=== PATIENT | male | born 1940 | race Caucasian/White ===

== ENCOUNTER → 2017-02-16 | Outpatient (CLI) | payer BC | LOC: FCPNEURO 21:30 | PROVIDERS: ATTEND Psychiatry & Neurology Sleep Medicine | DX: G47.39 Other sleep apnea (principal); G47.37 Central sleep apnea in conditions classified elsewhere ==

== ENCOUNTER → 2017-03-20 | Outpatient (CLI) | payer BC | LOC: FCPNEURO 20:00 | PROVIDERS: ATTEND Psychiatry & Neurology Sleep Medicine | DX: G47.39 Other sleep apnea (principal); G47.37 Central sleep apnea in conditions classified elsewhere ==

== ENCOUNTER → 2017-07-26 | Outpatient (CLI) | payer BC | LOC: FIMAGING 12:03 | PROVIDERS: ATTEND Internal Medicine Endocrinology, Diabetes & Metabolism | DX: Z13.820 Encounter for screening for osteoporosis (principal); M85.89 Other specified disorders of bone density and structure, multiple sites; E21.5 Disorder of parathyroid gland, unspecified ==

== ENCOUNTER 2018-04-09 09:42 | Inpatient (IN) | payer OTHER, BC ==
--- NOTE | 2018-04-09 10:03 | EDPHY ---
H & P Stated Complaint: mechanical fall 3 days ago R knee and R great toe pain Time Seen by Provider: 04/09/18 09:52 HPI/ROS: CHIEF COMPLAINT: Right knee and right great toe pain post mechanical fall HISTORY OF PRESENT ILLNESS: 77-year-old male via private vehicle complaining of acute right knee and right great toe pain. States that 3 days ago he was walking in his garden, sustained a mechanical fall, tripped and fell onto his right knee also stubbed his right great toe. This was a mechanical non syncopal episode. He has been complaining of pain ever since. He has been ambulating with a walker. He has been unable to go upstairs has been sleeping in a chair down stairs. He is here with his . States that he may have brushed his head against the garden edging however no loss of consciousness and no anticoagulant use. No midline C-spine pain. No alcohol or drug use at time of incident. PRIMARY CARE PROVIDER: Dr. Clara Powell REVIEW OF SYSTEMS: 10 systems reviewed and negative with the exception of the elements mentioned in the history of present illness PAST MEDICAL/SURGICAL HISTORY: Right knee arthroplasty 10 years ago at [facility] by Dr. Christian Collazo,no anticoagulant use, SOCIAL HISTORY: denies alcohol use at time of incident PHYSICAL EXAM 1) GENERAL: Well-developed, well-nourished, alert and oriented. Answering questions appropriately. 2) HEAD: Normocephalic, atraumatic 3) HEENT: Pupils equal, round, reactive to light bilaterally. Negative Horners. Nasopharynx, oropharynx, clear. No deformity or angulation of nose. No septal hematoma. No rhinorrhea. No oral trauma. Ears bilaterally with normal tympanic membranes. No hemotympanum. No fluid or blood in the external auditory canal. No raccoon eyes. No Santiago sign. Teeth are normally aligned with no gross malocclusion, TMJ bilaterally nontender, facial bones nontender including the zygomatic arch, maxilla mandible. 4) NECK: No cervical collar is on. Posterior cervical spine is nontender, no stepoff, no effusion. Full range of motion which does not elicit any midline cervical spine pain, no posterior midline tenderness, no step-off. 5) LUNGS: Clear to auscultation bilaterally, no wheezes, no rhonchi, no retractions. No obvious signs of trauma. No chest wall pain. No flaring, no grunting. Moving symmetrically. No crepitus. 6) HEART: [Regular rate and rhythm, 7) ABDOMEN: No guarding, no rebound, no focal tenderness, no peritoneal signs, no signs of trauma, no ecchymosis 8) MUSCULOSKELETAL: Right lower extremity: Anterior knee surgical scar noted, tender to palpation, no overlying skin changes no abrasion laceration, reproducible pain with range of motion. Proximally distally nontender. Hip nontender. Acetabulum nontender. Soft compartments throughout. DP PT pulses present and brisk. Tender to palpation right great toe with ecchymosis noted. No subungual hematoma. No deformity no angulation. Otherwise, Moving all extremities, no focal areas of tenderness, no obvious trauma. 9) BACK: No midline vertebral tenderness, no fluctuance, no step-off, no obvious trauma, no visual or palpable abnormality. 10) SKIN: No laceration. No abrasion DIFFERENTIAL DIAGNOSIS: In no particular order including but not limited to fracture, sprain, strain, periprosthetic fracture - Medical/Surgical History Hx Asthma: No Hx Chronic Respiratory Disease: No Hx Diabetes: No Hx Cardiac Disease: No Hx Renal Disease: No Hx Cirrhosis: No Hx Alcoholism: No Hx HIV/AIDS: No Hx Splenectomy or Spleen Trauma: No Other PMH: osteoarthritis. bila knee replacements. gi bleed 1999. sleep apnea - Social History Smoking Status: Never smoked Constitutional: Initial Vital Signs Temperature (C) 36.6 C 04/09/18 09:48 Heart Rate 65 04/09/18 09:48 Respiratory Rate 16 04/09/18 09:48 Blood Pressure 157/82 H 04/09/18 09:48 O2 Sat (%) 95 04/09/18 09:48 O2 Delivery Mode Room Air Allergies/Adverse Reactions: No Known Allergies Allergy (Unverified 04/09/18 09:47) Home Medications: Medication Instructions Recorded Finasteride 04/09/18 Lovaza 1 gm (*) 04/09/18 Myrbetriq 04/09/18 Valsartan 04/09/18 Medical Decision Making - Diagnostics Imaging Results: Imaging Impressions Foot X-Ray 04/09/18 10:02 Impression: 1. Acute nondisplaced fracture involving the great toe proximal phalanx. 2. Multicentric degenerative features and bone demineralization. Knee X-Ray 04/09/18 10:02 Impression: 1. Acute distal medial femoral epicondylar fracture. 2. Status post prior remote knee arthroplasty. Images reviewed myself Procedures: Procedure: Splint A right postop shoe splint was applied by ER lens coating technician. After application of the splint I returned and re-examined the patient. The splint was adequately immobilizing the joint and distal to the splint the patient's circulation and sensation were intact. Patient shows no signs of compartment syndrome. Was given orthopedic precautions. ED Course/Re-evaluation: I saw this patient independently based on established practice protocols. Care of patient under supervision of secondary supervising physician Dr Fuentes with whom I discussed case. 10:40 a.m. Patient was re-evaluated at this time. I discussed and reviewed the imaging studies with him and his . The case packer and sealer has consulted as well. Of concerned this patient is disability care for himself. He has a few stairs that he is been unable to climb at home and his expresses concern about her ability to lift him up and care for him. We discussed hospital admission which he is agreeable with noting that he does not feel safe being discharged home. I consulted with hospitalist, Bernie Palafox and will admit to Dr. Wei. Will consult Orthopedics Dr. Markie Hunter. 10:50 a.m.: Consultation with Dr. Hunter who will consult, recommends postop shoe and hinged knee brace. hinged knee brace not available in the ER. Patient will be placed into a postop shoe Departure - Departure Disposition: [facility] Acute Clinical Impression: Right femoral fracture Qualifiers: Encounter type: initial encounter Femur location: medial condyle Fracture type : closed Fracture alignment: displaced Qualified Code(s): S72.431A - Displaced fracture of medial condyle of right femur, initial encounter for closed fracture Fracture of right great toe Qualifiers: Encounter type: initial encounter Fracture type: closed Phalanx: proximal Fracture alignment: nondisplaced Qualified Code(s): S92.414A - Nondisplaced fracture of proximal phalanx of right great toe, initial encounter for closed fracture Condition: Fair Referrals: Mo Powell, DO [Primary Care Provider] - As per Instructions
[2018-04-09 11:09] LABS: PLATELET COUNT 267 10^3/uL (150-400)
[2018-04-09] MEDS ORDERED: ONDANSETRON 4 MG/2 ML VIAL IVP PRN (11:16)
[2018-04-09] MEDS ORDERED: ACETAMINOPHEN 325 MG TAB PO PRN (11:16)
--- NOTE | 2018-04-09 11:31 | PDGENHP ---
History and Physical History and Physical: CC: Difficulty ambulating after recent right leg and foot injuries HISTORY: This patient comes into the ER complaining of difficulty ambulating with 3 days of right leg and foot pain after an injury. He apparently fell while working in his garden landing on his right knee and stubbing his right toe and has had pain in both of those places since then. At home he has been unable to get up and down stairs and has used a walker to get around since this injury. However ambulation has become increasingly difficult with increasing difficulty pain. Notably he does have a previous total knee arthroplasty on the right. In terms of the fall itself he tripped so this was a mechanical fall without any neurologic or cardiac type symptoms at the time. 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 I have reviewed the list and ordered appropriate medicines. PHYSICAL EXAMINATION: Vital Signs: Mild hypertension in the ER currently resolved, otherwise normal without fever Examination: General: alert, oriented, good mentation, relaxed Skin: warm, dry, good color, no rash HEENT: normal Neck: no mass or jvd Resps: relaxed Lungs: clear breath sounds Heart: regular, no murmur Abdomen: soft, nondistended, nontender, +BS, no mass Upper Extremities: normal Lower Extremities: Some pain and tenderness at medial aspect of knee and fairly painful right 1st toe with any movement but no signs of infection or inflammation at those areas, no edema of the legs No Bleeding or bruising Neurologic: normal speech/language, 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, no focal weakness IV site: looks normal LABORATORY DATA: Mildly elevated white blood cell count otherwise normal CBC Unremarkable metabolic panel RADIOLOGY STUDIES: I reviewed images from x-rays of the right knee which shows a mildly displaced fracture the medial epicondyle, with arthroplasty components in the tibia and femur both appearing well seated I reviewed images of x-rays of the right foot showing a nondisplaced transverse fracture midshaft proximal phalanx of the right 1st toe, also significant degenerative changes at right 1st MTP joint ASSESSMENT: * medial epicondylar fracture of right knee and fracture of proximal phalanx right 1st toe, both after a mechanical fall 3 days ago * impaired mobility and safety due to pain of his fractures * prior total knee arthroplasty on the right, components appear well seated by my review of the x-ray, ortho consult pending * mechanical fall at home due to tripping in the garden * chronic hypertension on medication * hyperparathyroidism treated with parathyroidectomy and normal calcium send PTH since then PLANS: * Fall risk precautions * DVT prophylaxis * Physical occupational therapy * Non operative management of the fractures * Patient has been seen by Dr. Hunter who is placed a knee brace, and given the patient also a shoe boot for use with ambulation * Discharge from the hospital hopefully in 1-2 days if he is able to get up and ambulate well enough, but if necessary may need to stay longer or even go to intermediate facility though I doubt this I have reviewed the patient's case in detail with Arun campoverde of the ER I have reviewed the patient's past medical records as part of this assessment, including outpatient clinic records
--- NOTE | 2018-04-09 13:08 | ASMTCMCOM ---
CM Note CM Note Notes: Pt presented to the ED through triage for right knee and right great toe pain after having a mechanical fall in his garden at home 3 days ago. Pt admitted for displaced fracture of medial condyle of right femur, nondisplaced fracture of right great toe, and impaired mobility/ability to ambulate and care for himself if he were to return home. Pt has right TKA and ortho is going to consult. 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 Pt states he has been sleeping in a recliner in the family room on the main floor. There is one step down into the family room. Dixie states pt has also been using a walker to ambulate and using a urinal. But considering pt's injuries and level of pain, pt would be at very high risk for another fall if he were to return home at this time. Monique states she has been concerned that he will fall onto her and then she would get injured. We discussed the possibility of setting up skilled and non-skilled HC but it being a Wednesday it would be unlikely to be able to arrange enough care to start tonight in order to ensure a safe discharge plan. We discussed that pt would probably benefit from a short term rehab stay. Dixie states they live very close to [facility] (& Dixie volunteers there), so [facility] would be their first choice but they understand that rarely has beds available. We discussed [facility] and Dixie states she has a friend who is there right now and likes it. Non-triggering Level 1 PASSR completed. Exact DC needs TBD but anticipate pt DC to SNF rehab vs home w/HC. PT/OT evals ordered. CM to follow. Date Signed: 04/09/2018 01:07 PM Electronically Signed By:Charla Lopez RN
--- NOTE | 2018-04-09 14:00 | GCON ---
DATE OF CONSULTATION: 04/09/2018 REFERRING PHYSICIAN: Christian Wei MD CHIEF COMPLAINT: Pain, right knee and right foot, with difficulty ambulating. HISTORY OF PRESENT ILLNESS: This is a 77-year-old male who has a past history of right total knee ar throplasty about 10 years ago, came into the ER this morning with difficulty ambulating for the past 3 days. Three days ago, he was walking to the shower and tripped on something and fell striking his knee and likely his foot. Afterward he has been having increasing difficulty getting up and down sta irs. He has been using a walker to get around since the injury with worsening pain and increased dif ficulty ambulating. His brought him in. X-rays were done which showed a fracture of the knee a nd the toe, and I was consulted for further treatment. He is admitted to the Hospital service. REVIEW OF SYSTEMS: A 10-point review of systems is negative except as noted above. PAST SURGICAL HISTORY: Total knee arthroplasty at [facility] 10 years ago. PAST MEDICAL HISTORY: Benign prostatic hypertrophy and hypertension. FAMILY HISTORY: Noncontributory. SOCIAL HISTORY: Lives at home with his . MEDICATIONS: Please review list of medications in Consign[facility]. OBJECTIVE: VITAL SIGNS: His heart rate is 55, is hypertensive at 164/78. GENERAL: Pleasant, alert and oriented, lying in bed. MUSCULOSKELETAL: Right Knee: Minimal swelling of the knee. No effusi on. Well-healed midline scar. Tender to palpation over the medial epicondyle of the femur. Nontend er to palpation laterally along the femur or the tibia. Nontender to palpation medially along the ti jignesh. Extensor mechanism intact. His range of motion is 5 to about 60 degrees. Past 60 degrees is l imited by pain. He is stable to varus and valgus stress with pain medially with gentle valgus stress . Right Toe: There is bruising and swelling of the great toe. He is tender to palpation over the p roximal phalanx. There is bony hypertrophy of the 1st MTP joint. He has pain with passive motion of that toe. IMAGING: X-ray of the right knee was reviewed by me. The x-ray shows a nondisplaced medial epicondy le fracture. The femur prosthesis appears stable without evidence of loosening. The same applies fo r the tibial component. There are 2 screws in the tibial plateau from the prior surgery. These appe ar intact. X-ray of the right toe was reviewed. The patient has severe 1st MTP joint arthritis. Th ere is a nondisplaced transverse fracture through the proximal phalanx. ASSESSMENT AND PLAN: Right knee medial epicondyle fracture in the setting of total knee arthroplasty and right great toe nondisplaced proximal phalanx shaft fracture. I think these are stable fracture s. He may weightbear as tolerated, protected with a walker with a hinged knee brace and a hard-soled postop shoe. If he has difficulty with the hard-soled shoe, we may change this to a boot. However, this may be difficult with a hinged knee brace. The hinged knee brace was applied personally by me. It is set from 0-50 degrees for now, as that appears to be his level of comfort with flexion. He d oes not need a postop shoe while in bed, only when ambulating. He should follow up with me in 2 week s in my clinic. We will get x-rays to follow the progress of his fractures. /[id number]/MODL
[2018-04-09] MEDS ORDERED: DICLOFENAC SODIUM 1% 100 GM GEL TP PRN (15:30)
[2018-04-09] MEDS: LIDOCAINE 4%/MENTHOL 1% PATCH TD SCH (16:37)
[2018-04-09] MEDS: HYDROCODONE/APAP 5/325 TAB PO PRN ×2 (18:09→22:02)
[2018-04-09] MEDS: MELATONIN 3 MG TAB PO SCH (21:58)
[2018-04-10] MEDS: PATCH REMOVAL 1 EA PATCH TD SCH ×2 (01:16→20:32)
[2018-04-10] MEDS: HYDROCODONE/APAP 5/325 TAB PO PRN ×3 (04:47→16:26)
[2018-04-10] MEDS: FINASTERIDE 5 MG TAB PO SCH (08:53)
[2018-04-10] MEDS: OMEGA-3 ETHYL EST-LOVAZA 1 GM CAP PO SCH (08:54)
[2018-04-10] MEDS: Mirabegron [Myrbetriq] 25 MG PO SCH (08:54)
[2018-04-10] MEDS: LIDOCAINE 4%/MENTHOL 1% PATCH TD SCH (08:56)
[2018-04-10] MEDS: ENOXAPARIN 40 MG/0.4 ML SYR SC SCH (08:59)
[2018-04-10] MEDS: VALSARTAN 40 MG TAB PO SCH (09:02)
[2018-04-10] MEDS ORDERED: POLYETHYLENE GLYCOL 3350 17 GM PKT PO PRN (09:49)
[2018-04-10] MEDS ORDERED: BISACODYL 10 MG SUPP PR PRN (09:49)
[2018-04-10] MEDS ORDERED: LACTULOSE 20 GM/30 ML UDCUP PO PRN (09:49)
[2018-04-10] MEDS ORDERED: MAGNESIUM HYDROXIDE 30 ML UDCUP PO PRN (09:49)
[2018-04-10] MEDS ORDERED: ACETAMINOPHEN 325 MG TAB PO PRN (09:50)
[2018-04-10] MEDS ORDERED: ACETAMINOPHEN 325 MG TAB PO SCH (12:00)
--- NOTE | 2018-04-10 13:47 | HOSPPROG ---
Hospitalist Progress Note Assessment/Plan: * medial epicondylar fracture of right knee and fracture of proximal phalanx right 1st toe, both after a mechanical fall 3 days ago, prev R TKA -more comfortable, able to ambulate a little better with walker/brace -PT/OT evals appreciated, recommend SNF for further strengthening/safety -CM to assist -appreciate ortho evaluation-Dr Hunter * chronic hypertension -continue home medications * hyperparathyroidism treated with parathyroidectomy -no specific issues *hypoxia -no chronic issues -on 1-2L since admit -wean to RA -no indication of infection -encouraged deep breathing *BPH -home meds DVT prophylaxis-lovenox DISPO > 2 mdnts, change to inpt status as discharge planned to SNF for ongoing therapy PCP Dr Zia Powell FULL CODE Subjective: Says pain improved with norco. Denies CP/SOB. No recent illnesses. No LOC with fall, was mechanical. OK with SNF if recommended ([facility] close to home). Objective: Vital Signs Temp Pulse Resp BP Pulse Ox 98.1 F 66 14 115/64 90 L 04/10/18 11:24 04/10/18 11:24 04/10/18 11:24 04/10/18 11:24 04/10/18 11:24 Laboratory Results 04/09/18 10:50 04/09/18 10:50 04/09/18 04/10/18 04/11/18 11:59 11:59 11:59 Intake Total 1850 Output Total 1150 Balance 700 - Pending Discharge Pending Discharge Within 48 Hours: Yes Pending Discharge Date: 04/12/18 Pending Discharge Time: 11:00 - Physical Exam Constitutional: no apparent distress, appears nourished Eyes: PERRL, anicteric sclera Ears, Nose, Mouth, Throat: moist mucous membranes, hearing normal Cardiovascular: regular rate and rhythym, systolic murmur, No edema Respiratory: no respiratory distress, no rales or rhonchi, clear to auscultation Gastrointestinal: normoactive bowel sounds, soft, non-tender abdomen, No guarding, No rebound Skin: warm, normal color Musculoskeletal: other (R leg in brace, R foot in post op shoe) Psychiatric: interacting appropriately, not anxious, not encephalopathic, thought process linear ICD10 Worksheet Patient Problems: Problems Problem Status Onset Right femoral fracture Acute Fracture of right great toe Acute
[2018-04-10] MEDS: SENNOSIDES/DOCUSATE SODIUM TAB PO SCH (20:31)
[2018-04-10] MEDS: MELATONIN 3 MG TAB PO SCH (20:31)
[2018-04-11] MEDS: ENOXAPARIN 40 MG/0.4 ML SYR SC SCH (08:12)
[2018-04-11] MEDS: MAGNESIUM HYDROXIDE 30 ML UDCUP PO SCH (08:13)
[2018-04-11] MEDS: FINASTERIDE 5 MG TAB PO SCH (08:13)
[2018-04-11] MEDS: SENNOSIDES/DOCUSATE SODIUM TAB PO SCH ×2 (08:13→20:01)
[2018-04-11] MEDS: OMEGA-3 ETHYL EST-LOVAZA 1 GM CAP PO SCH (08:13)
[2018-04-11] MEDS: VALSARTAN 40 MG TAB PO SCH (08:13)
[2018-04-11] MEDS: LIDOCAINE 4%/MENTHOL 1% PATCH TD SCH (08:14)
[2018-04-11] MEDS: Mirabegron [Myrbetriq] 25 MG PO SCH (08:14)
--- NOTE | 2018-04-11 10:20 | HOSPPROG ---
Hospitalist Progress Note Assessment/Plan: Parish came to the ER complaining of difficulty ambulating with 3 days of right leg and foot pain after an injury. He apparently fell while working in his garden landing on his right knee and stubbing his right toe and has had pain in both of those places since then. At home he has been unable to get up and down stairs and has used a walker to get around since this injury. First encounter * medial epicondylar fracture of right knee and fracture of proximal phalanx right 1st toe, both after a mechanical fall 3 days ago, prev R TKA -appreciate Dr Hunter -weight bear as tolerated -f/u with ortho in 2 weeks -SNF * chronic hypertension -continue home medications * hyperparathyroidism treated with parathyroidectomy -no specific issues *hypoxia -on room air today -IS *BPH -home meds *Plan: dc to rehab, likely [facility] Subjective: Parish said his knee has increase pain when the pain medications wear off. Objective: Vital Signs Temp Pulse Resp BP Pulse Ox 36.6 C 77 14 135/70 H 92 04/11/18 07:35 04/11/18 07:35 04/11/18 07:35 04/11/18 07:35 04/11/18 07:35 Laboratory Results 04/09/18 10:50 04/09/18 10:50 04/10/18 04/11/18 04/12/18 05:59 05:59 05:59 Intake Total 1650 850 Output Total 1000 700 Balance 650 150 - Physical Exam Constitutional: no apparent distress, appears nourished, not in pain Eyes: PERRL Ears, Nose, Mouth, Throat: hearing normal Cardiovascular: regular rate and rhythym, no murmur, rub, or gallop Respiratory: no respiratory distress Gastrointestinal: normoactive bowel sounds Skin: warm Musculoskeletal: generalized weakness Neurologic: AAOx3 Psychiatric: interacting appropriately ICD10 Worksheet Patient Problems: Problems Problem Status Onset Fracture of right great toe Acute Right femoral fracture Acute
[2018-04-11] MEDS: HYDROCODONE/APAP 5/325 TAB PO PRN (10:46)
--- NOTE | 2018-04-11 12:59 | ASMTCMCOM ---
CM Note CM Note Notes: Spoke with patient about discharge planning. [facility] does not have a bed. Roberto has initiated insurance authorization and says that it may take 48-72 hours. I explained this to patient, and he is understanding. Case Management will follow. Date Signed: 04/11/2018 12:58 PM Electronically Signed By:Belinda Brito RN
--- NOTE | 2018-04-11 15:32 | ASMTCMCOM ---
CM Note CM Note Notes: Confirmed with the Financial Counseling team that patient only has Medicare A (Inpatient Only). Spoke with Rochelle at [facility] - SNF is covered under part A only. Since patient is under an observation status - [facility] will continue pursuing authorization with [facility] Plan. Per Rochelle, authorization with [facility] can take some time - but they will initiate today. CM will follow. Plan: [facility] - auth pending. Date Signed: 04/11/2018 03:32 PM Electronically Signed By:Tiff Flannery RN
[2018-04-11] MEDS: MELATONIN 3 MG TAB PO SCH (19:59)
[2018-04-11] MEDS: PATCH REMOVAL 1 EA PATCH TD SCH (20:00)
[2018-04-12] MEDS: ENOXAPARIN 40 MG/0.4 ML SYR SC SCH (09:16)
[2018-04-12] MEDS: VALSARTAN 40 MG TAB PO SCH (09:18)
[2018-04-12] MEDS: FINASTERIDE 5 MG TAB PO SCH (09:18)
[2018-04-12] MEDS: OMEGA-3 ETHYL EST-LOVAZA 1 GM CAP PO SCH (09:18)
[2018-04-12] MEDS: LIDOCAINE 4%/MENTHOL 1% PATCH TD SCH (09:19)
[2018-04-12] MEDS: MAGNESIUM HYDROXIDE 30 ML UDCUP PO SCH (09:19)
[2018-04-12] MEDS: SENNOSIDES/DOCUSATE SODIUM TAB PO SCH ×2 (09:20→21:48)
[2018-04-12] MEDS: Mirabegron [Myrbetriq] 25 MG PO SCH (09:20)
--- NOTE | 2018-04-12 09:56 | HOSPPROG ---
Hospitalist Progress Note Assessment/Plan: Parish came to the ER complaining of difficulty ambulating with 3 days of right leg and foot pain after an injury. He apparently fell while working in his garden landing on his right knee and stubbing his right toe and has had pain in both of those places since then. At home he has been unable to get up and down stairs and has used a walker to get around since this injury. * medial epicondylar fracture of right knee and fracture of proximal phalanx right 1st toe, both after a mechanical fall 3 days ago, prev R TKA -appreciate Dr Hunter -weight bear as tolerated -f/u with ortho in 2 weeks -SNF * chronic hypertension -continue home medications * hyperparathyroidism treated with parathyroidectomy -no specific issues *hypoxia -on room air today -IS *BPH -home meds *Plan: awaiting placement. Subjective: Ray is not having any significant pain, feeling fine overall. Objective: Vital Signs Temp Pulse Resp BP Pulse Ox 36.8 C 72 13 122/74 H 94 04/12/18 08:00 04/12/18 08:00 04/12/18 08:00 04/12/18 09:18 04/12/18 08:00 Laboratory Results 04/09/18 10:50 04/09/18 10:50 04/11/18 04/12/18 04/13/18 05:59 05:59 05:59 Intake Total 850 Output Total 700 Balance 150 - Physical Exam Constitutional: no apparent distress, appears nourished, not in pain Eyes: PERRL Ears, Nose, Mouth, Throat: hearing normal Respiratory: no respiratory distress Skin: warm Musculoskeletal: generalized weakness Neurologic: AAOx3 Psychiatric: interacting appropriately, not anxious, not encephalopathic, thought process linear ICD10 Worksheet Patient Problems: Problems Problem Status Onset Fracture of right great toe Acute Right femoral fracture Acute
--- NOTE | 2018-04-12 14:47 | PDMN ---
Medical Necessity Medical necessity: [facility] [place] mus[place] disease R knee fx, R toe fx, pt has sig. fall risk, unable to ambulate safely status changed to INPT 04/12/18 for ongoing monitoring, tx.
--- NOTE | 2018-04-12 16:29 | ASMTCMCOM ---
CM Note CM Note Notes: Today Rochelle with [facility] reports pt BC ins refusing to auth SNF, they want pt to use Medicare. Pt now inpatient status as of today, will d/c to [facility] SNF Wednesday. Pt and understanding of insurance issues. Date Signed: 04/12/2018 04:28 PM Electronically Signed By:MADISON Escalante
[2018-04-12] MEDS: HYDROCODONE/APAP 5/325 TAB PO PRN (21:47)
[2018-04-12] MEDS: MELATONIN 3 MG TAB PO SCH (21:48)
[2018-04-12] MEDS: PATCH REMOVAL 1 EA PATCH TD SCH (21:49)
[2018-04-13 05:22] LABS: PLATELET COUNT 256 10^3/uL (150-400)
[2018-04-13] MEDS: OMEGA-3 ETHYL EST-LOVAZA 1 GM CAP PO SCH (10:08)
[2018-04-13] MEDS: SENNOSIDES/DOCUSATE SODIUM TAB PO SCH ×2 (10:08→20:02)
[2018-04-13] MEDS: VALSARTAN 40 MG TAB PO SCH (10:09)
[2018-04-13] MEDS: Mirabegron [Myrbetriq] 25 MG PO SCH (10:09)
[2018-04-13] MEDS: ENOXAPARIN 40 MG/0.4 ML SYR SC SCH (10:10)
[2018-04-13] MEDS: FINASTERIDE 5 MG TAB PO SCH (10:10)
[2018-04-13] MEDS: MAGNESIUM HYDROXIDE 30 ML UDCUP PO SCH (10:23)
[2018-04-13] MEDS: LIDOCAINE 4%/MENTHOL 1% PATCH TD SCH (10:23)
--- NOTE | 2018-04-13 17:00 | HOSPPROG ---
Hospitalist Progress Note Assessment/Plan: Parish came to the ER complaining of difficulty ambulating with 3 days of right leg and foot pain after an injury. He apparently fell while working in his garden landing on his right knee and stubbing his right toe and has had pain in both of those places since then. At home he has been unable to get up and down stairs and has used a walker to get around since this injury. * medial epicondylar fracture of right knee and fracture of proximal phalanx right 1st toe, both after a mechanical fall, prev R TKA -appreciate Dr Hunter -weight bear as tolerated -f/u with ortho in 2 weeks -SNF *leukocytosis -rsolved * chronic hypertension -continue home medications * hyperparathyroidism treated with parathyroidectomy -no specific issues *hypoxia -on room air today -IS *BPH -home meds *Plan: awaiting placement. patient is not safe to return home, has too many steps and is at high risk for falling Subjective: Parish is anxious to go to rehab for strengthening so he can get back home w his . Not c/o pain. Objective: Vital Signs Temp Pulse Resp BP Pulse Ox 36.8 C 71 16 132/71 H 93 04/13/18 12:09 04/13/18 12:09 04/13/18 12:09 04/13/18 12:09 04/13/18 12:09 Laboratory Results 04/13/18 04:21 04/12/18 04/13/18 04/14/18 05:59 05:59 05:59 Intake Total 850 Output Total 750 Balance 100 - Physical Exam Constitutional: no apparent distress, appears nourished, not in pain Eyes: PERRL Ears, Nose, Mouth, Throat: hearing normal Cardiovascular: regular rate and rhythym Respiratory: no respiratory distress Skin: warm Musculoskeletal: generalized weakness Neurologic: AAOx3 Psychiatric: interacting appropriately ICD10 Worksheet Patient Problems: Problems Problem Status Onset Fracture of right great toe Acute Right femoral fracture Acute
[2018-04-13] MEDS: MELATONIN 3 MG TAB PO SCH (20:01)
[2018-04-13] MEDS: PATCH REMOVAL 1 EA PATCH TD SCH (20:02)
[2018-04-14] MEDS: Mirabegron [Myrbetriq] 25 MG PO SCH (08:27)
[2018-04-14] MEDS: FINASTERIDE 5 MG TAB PO SCH (08:28)
[2018-04-14] MEDS: VALSARTAN 40 MG TAB PO SCH (08:28)
[2018-04-14] MEDS: ENOXAPARIN 40 MG/0.4 ML SYR SC SCH (08:28)
[2018-04-14] MEDS: OMEGA-3 ETHYL EST-LOVAZA 1 GM CAP PO SCH (08:28)
[2018-04-14] MEDS: MAGNESIUM HYDROXIDE 30 ML UDCUP PO SCH (08:34)
[2018-04-14] MEDS: SENNOSIDES/DOCUSATE SODIUM TAB PO SCH ×2 (08:34→20:12)
[2018-04-14] MEDS: LIDOCAINE 4%/MENTHOL 1% PATCH TD SCH (08:34)
--- NOTE | 2018-04-14 11:24 | HOSPPROG ---
Hospitalist Progress Note Assessment/Plan: Parish came to the ER complaining of difficulty ambulating with 3 days of right leg and foot pain after an injury. He apparently fell while working in his garden landing on his right knee and stubbing his right toe and has had pain in both of those places since then. At home he has been unable to get up and down stairs and has used a walker to get around since this injury. * medial epicondylar fracture of right knee and fracture of proximal phalanx right 1st toe, both after a mechanical fall, prev R TKA -appreciate Dr Hunter -weight bear as tolerated -f/u with ortho in 2 weeks -SNF *leukocytosis -resolved * chronic hypertension -continue home medications * hyperparathyroidism treated with parathyroidectomy -no specific issues *hypoxia -on room air today -IS *BPH -home meds *Plan: dc wednesday morning to rehab Subjective: Ray has no complaints, is anxious to go to rehab. Objective: Vital Signs Temp Pulse Resp BP Pulse Ox 36.8 C 59 L 16 115/58 L 92 04/14/18 07:21 04/14/18 07:21 04/14/18 07:21 04/14/18 07:21 04/14/18 07:21 Laboratory Results 04/13/18 04:21 04/13/18 04/14/18 04/15/18 05:59 05:59 05:59 Intake Total 850 Output Total 750 Balance 100 - Physical Exam Constitutional: no apparent distress, appears nourished, not in pain Eyes: PERRL Ears, Nose, Mouth, Throat: hearing normal Respiratory: no respiratory distress Skin: warm, normal color Musculoskeletal: generalized weakness, other (brace on right leg) Neurologic: AAOx3 Psychiatric: interacting appropriately, not anxious, not encephalopathic ICD10 Worksheet Patient Problems: Problems Problem Status Onset Fracture of right great toe Acute Right femoral fracture Acute
[2018-04-14] MEDS: MELATONIN 3 MG TAB PO SCH (20:05)
[2018-04-14] MEDS: PATCH REMOVAL 1 EA PATCH TD SCH (20:12)
[2018-04-15] MEDS: HYDROCODONE/APAP 5/325 TAB PO PRN (00:11)
[2018-04-15] MEDS: ENOXAPARIN 40 MG/0.4 ML SYR SC SCH (08:06)
[2018-04-15] MEDS: OMEGA-3 ETHYL EST-LOVAZA 1 GM CAP PO SCH (08:07)
[2018-04-15] MEDS: VALSARTAN 40 MG TAB PO SCH (08:07)
[2018-04-15] MEDS: FINASTERIDE 5 MG TAB PO SCH (08:10)
[2018-04-15] MEDS: Mirabegron [Myrbetriq] 25 MG PO SCH (08:11)
[2018-04-15] MEDS: LIDOCAINE 4%/MENTHOL 1% PATCH TD SCH (08:12)
[2018-04-15] MEDS: MAGNESIUM HYDROXIDE 30 ML UDCUP PO SCH (08:12)
[2018-04-15] MEDS: SENNOSIDES/DOCUSATE SODIUM TAB PO SCH (08:13)
[2018-04-15 08:14] VITALS: BP 113/82
--- NOTE | 2018-04-15 09:48 | PDIAF ---
- Diagnosis Diagnosis: Fall Code Status: Full Code - Medication Management Discharge Medications: electronically signed and located in the Home Medication List. PICC Care - Routine: N/A - Orders Services needed: Registered Nurse, Physical Therapy, Occupational Therapy Diet Recommendation: no restrictions on diet Additional Instructions: Ortho: WBAT RLE in hinged knee brace and hard soled post op shoe. He does not need the shoe while in bed. May remove brace to bath if comfortable. F/u in 2 wks - Follow Up Care Current Providers and Referrals: Mo Powell DO [Primary Care Provider] - follow up in 2 weeks Janes Hunter MD [Medical Doctor] - follow up in 2 weeks
--- NOTE | 2018-04-15 10:32 | ASMTLACE ---
JOSEE Length of stay for Answers: 4-6 days current admission Acuity / Level of Answers: Yes Care: Did the patient have an inpatient admission? Comorbidities - select Answers: History of falls all that apply Other Notes: HTN, BPH, TKA # of Emergency department Answers: 1-2 visits in the last 6 months Score: 12 Date Signed: 04/15/2018 10:27 AM Electronically Signed By:SOMMER Todd
--- NOTE | 2018-04-15 10:37 | ASDISCHSUM ---
Discharge Information Plan Status:SNF Medically Cleared to Leave:04/14/2018 Discharge Date:04/14/2018 CM D/C Disposition: ADT D/C Disposition:Fpc Facility Projected Discharge Date:04/15/2018 11:00 AM Transportation at D/C: Discharge Delay Reason: Follow-Up Date:04/15/2018 11:00 AM Discharge Slot: Final Diagnosis: Placement Information Referral Type:*Shelter/SNF Referral ID:[id number] Provider Name:[facility] Address 1:[address] [facility] [address] [facility] Address 2: City:[place] Selection Factors: State:[place] Patient Contact Information Contact Name:ERVIN Relationship: Address:[address] Work Phone: [facility] Phone: State/Zip Code:[place] [address] Email: Financial Information Financial Class:Medicare Primary Plan Desc:MEDICARE INPATIENT Primary Plan Number:[id number] Secondary Plan Desc:[employer] [facility] Secondary Plan Number:[id number] Assessment Information LACE LACE Length of stay for Answers: 4-6 days current admission Acuity / Level of Answers: Yes Care: Did the patient have an inpatient admission? Comorbidities - select Answers: History of falls all that apply Other Notes: HTN, BPH, TKA # of Emergency department Answers: 1-2 visits in the last 6 months Score: 12 Date Signed: 04/15/2018 10:27 AM Electronically Signed By:SOMMER Todd [facility] Progress Note CM Note CM Note Notes: Pt presented to the ED through triage for right knee and right great toe pain after having a mechanical fall in his garden at home 3 days ago. Pt admitted for displaced fracture of medial condyle of right femur, nondisplaced fracture of right great toe, and impaired mobility/ability to ambulate and care for himself if he were to return home. Pt has right TKA and ortho is going to consult. 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 Pt states he has been sleeping in a recliner in the family room on the main floor. There is one step down into the family room. Dixie states pt has also been using a walker to ambulate and using a urinal. But considering pt's injuries and level of pain, pt would be at very high risk for another fall if he were to return home at this time. Monique states she has been concerned that he will fall onto her and then she would get injured. We discussed the possibility of setting up skilled and non-skilled HC but it being a Wednesday it would be unlikely to be able to arrange enough care to start tonight in order to ensure a safe discharge plan. We discussed that pt would probably benefit from a short term rehab stay. Dixie states they live very close to [facility] (& [facility]ie [facility]), so [facility] would be their first choice but they understand that rarely has beds available. We discussed [facility] and Dixie states she has a friend who is there right now and likes it. Non-triggering Level 1 PASSR completed. Exact DC needs TBD but anticipate pt DC to SNF rehab vs home w/HC. PT/OT evals ordered. CM to follow. Date Signed: 04/09/2018 01:07 PM Electronically Signed By:Charla Lopez RN [facility] Progress Note CM Note CM Note Notes: Spoke with patient about discharge planning. [facility] not have a bed. [facility] has initiated insurance authorization and says that it may take 48-72 hours. I explained this to patient, and he is understanding. Case Management will follow. Date Signed: 04/11/2018 12:58 PM Electronically Signed By:Belinda Brito RN [facility] CM Progress Note CM Note CM Note Notes: Confirmed with the Financial Counseling team that patient only has Medicare A (Inpatient Only). Spoke with Rochelle at [facility] - SNF is covered under part A only. Since patient is under an observation status - [facility] will continue pursuing authorization with [facility] Plan. Per Rochelle, authorization with [facility] can take some time - but they will initiate today. CM will follow. Plan: [facility] - auth pending. Date Signed: 04/11/2018 03:32 PM Electronically Signed By:Tiff Flannery RN [facility] CM Progress Note CM Note CM Note Notes: Today Rochelle with [facility] reports pt BC ins refusing to auth SNF, they want pt to use Medicare. Pt now inpatient status as of today, will d/c to [facility] Wednesday. Pt and understanding of insurance issues. Date Signed: 04/12/2018 04:28 PM Electronically Signed By:MADISON Escalante Case Management Discharge Plan Note Case Management Discharge Discharge Order Complete? Answers: Yes Patient to Obtain Answers: Other Notes: [facility] Medications Transportation Arranged Answers: Other Notes: [facility] W/C Transportation Transport will Pick (Date 04/15/2018 01:00 PM & Time) EMTALA Complete Answers: No Case Management Transport Answers: Yes Form Complete Faxed Final Orders Answers: Yes Agency/Facility Transfer Answers: Yes Report Printed & Faxed to Receiving Agency Family Notified Answers: No Discharge Comments Notes: Pts case discussed w/ Amara Melgar NP. Pt is being discharged today. CM met w/ pt for dispo planning. CM informed pt of the sheepskin pickler time. DC orders sent to [facility]. CM provided MARIANA Clarke w/ phone number to give report. CM available for changes. Plan: [facility] Date Signed: 04/15/2018 10:31 AM Electronically Signed By:SOMMER Todd Intervention Information Intervention Type:*IM-Signed Date of Service:04/15/2018 10:19 AM Patient Type:Inpatient Staff Member:Baylee Washington Hours: Discipline: Severity: Comment:
--- NOTE | 2018-04-15 14:23 | GDS ---
DISCHARGE DIAGNOSES: 1. Medial epicondyle fracture of the right knee and fracture of the proximal phalanx of the right 1s t toe. 2. Leukocytosis. 3. Chronic hypertension. 4. Hyperparathyroidism. 5. Hypoxia. CONSULTATIONS: Dr. Toscano or berta of Orthopedics. PHYSICAL EXAM: GENERAL: The patient is alert. VITAL SIGNS: Afebrile at 36.6. Pulse is 98. Respi ratory rate is 14. Blood pressure is 113/82. He is saturating 89% on room air. I have seen and eval uated the patient on the day of discharge. HOSPITAL COURSE: The patient is a 77-year-old male who presented to the emergency room after experie ncing pain secondary to a mechanical fall. He was evaluated and diagnosed with: 1. Medial epicondyle fracture of the right knee and fracture of the proximal phalanx of the right 1s t toe. He did receive a consultation from Dr. Hnuter of Orthopedics. He will follow up with him in 2 w eeks and requires custodial facility for strengthening. He is weightbearing as tolerated. 2. Leukocytosis. This is an acute response and has resolved. 3. Chronic hypertension. His home medications have been continued. His blood pressure is well cont rolled. 4. Hyperparathyroidism. No issues related to this. 5. Hypoxia. The patient is on room air. He has no signs of fever or other respiratory complication s. No signs of pneumonia or illness. DISPOSITION: The patient will be discharged to custodial facility for further rehabilitation a nd management. There are no pending studies. DISCHARGE MEDICATIONS: Please refer to EMR form. I have not discontinued the patient's previously p rescribed home medications. New medications include Lovenox, as well as melatonin and stool softener s. FOLLOWUP: Followup will be with Dr. Hunter, his primary orthopedist, in 2 weeks. He will also follow u p with Mo Powell in 2 weeks. /[id number]/MODL
== END 2018-04-15 13:07 | DRG 534 ==
LOC: F3N 11:24 → OBSVTOIN 04-12 14:40 → F3E 04-13 12:02
PROVIDERS: ADMIT Internal Medicine; ATTEND Internal Medicine
DX: S72.431A Displaced fracture of medial condyle of right femur, initial encounter for closed fracture (principal); S92.414A Nondisplaced fracture of proximal phalanx of right great toe, initial encounter for closed fracture; W01.0XXA Fall on same level from slipping, tripping and stumbling without subsequent striking against object, initial encounter; Y93.H2 Activity, gardening and landscaping; Y92.017 Garden or yard in single-family (private) house as the place of occurrence of the external cause; R09.02 Hypoxemia; G47.30 Sleep apnea, unspecified; N40.0 Benign prostatic hyperplasia without lower urinary tract symptoms; I10 Essential (primary) hypertension; E21.3 Hyperparathyroidism, unspecified; Z96.653 Presence of artificial knee joint, bilateral
CPT/HCPCS: 97110-GP; 97116-GP; 97161-GP; 97166-GO; 97530-GP; 97535-GO; G0378; J1650; L1832; L4386

== ENCOUNTER → 2018-05-04 | Outpatient (CLI) | payer BC, OTHER | LOC: BMCIMAGING 09:10 | PROVIDERS: ATTEND Physician Assistant | DX: S89.91XD Unspecified injury of right lower leg, subsequent encounter (principal); S92.414D Nondisplaced fracture of proximal phalanx of right great toe, subsequent encounter for fracture with routine healing ==

== ENCOUNTER → 2018-06-09 | Outpatient (CLI) | payer BC, OTHER | LOC: BMCIMAGING 10:12 | PROVIDERS: ATTEND Podiatrist Foot & Ankle Surgery | DX: S92.414D Nondisplaced fracture of proximal phalanx of right great toe, subsequent encounter for fracture with routine healing (principal); M25.871 Other specified joint disorders, right ankle and foot ==

== ENCOUNTER → 2018-07-05 | Outpatient (CLI) | payer BC, OTHER | LOC: BMCIMAGING 10:18 | PROVIDERS: ATTEND Podiatrist Foot & Ankle Surgery | DX: S92.414D Nondisplaced fracture of proximal phalanx of right great toe, subsequent encounter for fracture with routine healing (principal) ==